=== PATIENT | female | born 1960 | race Caucasian/White ===

== ENCOUNTER 2021-09-25 13:50 | Outpatient (CLI) | payer BC, MEDICAID, SELFPAY ==
--- NOTE | 2021-09-25 14:04 | XR_ITS ---
WS: [id number] DEXA (DUAL ENERGY X-RAY ABSORPTIOMETRY) Bone mineral density was performed using a [employer] machine. HISTORY: POSTMENOPAUSAL COMPARISON: None available. Lumbar spine BMD (L1-L4): 1.022 g/cm2 T score: -1.3 Z score: -0.9 Total hip BMD: Left: 1.027 g/cm2. T score: 0.2 Z score: 0.5 Right: 1.019 g/cm2. T score: 0.1 Z score: 0.5 10 year probability of a major osteoporotic fracture is 9.5%. XR/XR DEXA axial skeleton* 23224 IMPRESSION: OSTEOPENIA based upon the WHO classification for females.
== END 2021-09-25 13:51 | disposition home or self-care (01) ==
LOC: RAD 13:53
PROVIDERS: Visit Provider Nurse Practitioner
DX: Z13.820 Encounter for screening for osteoporosis (principal); Z78.0 Asymptomatic menopausal state; M85.80 Other specified disorders of bone density and structure, unspecified site
CPT/HCPCS: 77080

== ENCOUNTER 2021-10-15 07:00 | Day surgery (SDC) | payer BC, MEDICAID, SELFPAY ==
[2021-10-12 11:33] VITALS: BMI 40.0
[2021-10-15 07:27] VITALS: BP 124/91; PULSE 88; RESP 18; TEMP 36.6; O2SAT 96
--- NOTE | 2021-10-15 07:40 | ANES.PREANE2 ---
Pre-Anesthetic Assessment Height/Weight: Height 1.52 m Weight 92.986 kg Temp Pulse Resp BP Pulse Ox 97.9 F 88 18 124/91 96 10/15/21 07:27 10/15/21 07:27 10/15/21 07:27 10/15/21 07:27 10/15/21 07:27 Preop Diagnosis: History of cancer Operation Date: 10/15/21 08:30 Proposed Procedures p Colonoscopy g0105/z85.038(Not Applicable) - Misael Rubalcava MD Familial anesthetic complications: Trouble waking up when she [age] years old, no trouble since. Has had once incident of PONV. Also, concerned because she had conscious sedation during one colonoscopy and didn't realize she'd be awake. Does not want that to happen again Was Beta Vinnie taken within 24 hours: N/A Was Clonidine taken within 24 hours: N/A Last intake: Intake Last Liquid Date 10/14/21 Last Liquid Time 20:00 Last Solid Date 10/13/21 Last Solid Time 20:00 Social No alcohol and No tobacco former smoker Exam alert, oriented x 3, clear to auscultation bilaterally and regular rate & rhythm Airway Mallampati: Class II Dentition: full Pulmonary Chronic Obstructive Pulmonary Disease CV/HEM None reported None reported Hepatic None reported GI None reported Metabolic Morbid Obesity Musc/skel None reported Neuropsych None reported Anesthetic Plan ASA status: 3 Risk of > 500 ml blood loss (7ml/kg in children): No Other Pertinent Information Colon cancer s/p resection Medications/Allergies Home Medications Medication Instructions Recorded Confirmed Last Taken Type albuterol sulfate 90 mcg/actuation 2 puff INHALATION Q6H PRN 09/17/21 10/12/21 Unknown History aerosol inhaler (Ventolin HFA) escitalopram oxalate 20 mg tablet 20 mg PO DAILY 09/17/21 10/12/21 10/14/21 History fluticasone propionate 50 1 spray INTRANASAL BID 09/17/21 10/12/21 10/14/21 History mcg/actuation nasal spray,suspension (Flonase Allergy Relief) umeclidinium 62.5 mcg-vilanterol 1 inh INHALATION DAILY 10/04/21 10/12/21 10/14/21 History 25 mcg/actuation powdr for inhalation (Anoro Ellipta) coenzyme Q10 100 mg tablet 100 mg PO DAILY 10/12/21 10/12/21 10/14/21 History calcium carbonate 600 mg calcium 600 mg PO BID 10/15/21 10/15/21 10/14/21 History (1,500 mg) tablet (Calcium) cholecalciferol (vitamin D3) 50 50 mcg PO DAILY 10/15/21 10/15/21 10/14/21 History mcg (2,000 unit) tablet (Vitamin D3) tirzbnnl-ivg-ofwsk ac 400 1 tab PO DAILY 10/15/21 10/15/21 10/14/21 History mcg-calcium carb 500 mg-vit K1 20 mcg tablet (Women's 50 Plus Multivitamin) Allergies Allergy/AdvReac Type Severity Reaction Status Date / Time cefaclor Allergy HIVES Verified 10/04/21 13:06 penicillin V [From Nhan-Dayana Padron] Allergy HIVES Verified 10/04/21 13:06 Data Anesthesia Cardiac Studies: No Data to Display
[2021-10-15] MEDS: sodium chloride 0.9% 1,000 ML 30 ML IV (07:41)
--- NOTE | 2021-10-15 09:08 | P.HP_ITS ---
Same Day Surgery H&P Indication for Procedure/HPI DATE OF PROCEDURE: October 15, 2021 CHIEF COMPLAINT/INDICATIONFOR SURGICAL PROCEDURE: Previous colorectal cancer PREOP DIAGNOSIS: History of cancer PLANNED PROCEDURE: Operation Date: 10/15/21 08:30 Proposed Procedures p Colonoscopy g0105/z85.038(Not Applicable) - Misael Rubalcava MD Medications/Allergies* Home Medications Medication Instructions Recorded Confirmed Type albuterol sulfate 90 mcg/actuation 2 puff INHALATION Q6H PRN 09/17/21 10/12/21 History aerosol inhaler (Ventolin HFA) escitalopram oxalate 20 mg tablet 20 mg PO DAILY 09/17/21 10/12/21 History fluticasone propionate 50 1 spray INTRANASAL BID 09/17/21 10/12/21 History mcg/actuation nasal spray,suspension (Flonase Allergy Relief) umeclidinium 62.5 mcg-vilanterol 1 inh INHALATION DAILY 10/04/21 10/12/21 History 25 mcg/actuation powdr for inhalation (Anoro Ellipta) coenzyme Q10 100 mg tablet 100 mg PO DAILY 10/12/21 10/12/21 History calcium carbonate 600 mg calcium 600 mg PO BID 10/15/21 10/15/21 History (1,500 mg) tablet (Calcium) cholecalciferol (vitamin D3) 50 50 mcg PO DAILY 10/15/21 10/15/21 History mcg (2,000 unit) tablet (Vitamin D3) hopiosbx-zep-rrtqr ac 400 1 tab PO DAILY 10/15/21 10/15/21 History mcg-calcium carb 500 mg-vit K1 20 mcg tablet (Women's 50 Plus Multivitamin) Allergies/Adverse Reactions Allergy/AdvReac Type Severity Reaction Status Date / Time cefaclor Allergy HIVES Verified 10/04/21 13:06 penicillin V [From Pen-Vee K] Allergy HIVES Verified 10/04/21 13:06 Current Medications: Generic Name Dose Route Start Last Admin Trade Name Freq PRN Reason Stop Dose Admin Sodium Chloride 1,000 mls @ 30 mls/hr 10/15/21 07:15 10/15/21 07:41 Sodium Chloride 0.9% IV 10/16/21 07:14 30 mls/hr .Q24H VALORIE Administration Pertinent Exam Findings alert, oriented x 3, clear to auscultation bilaterally, regular rate & rhythm, operative site marked and procedure specific exam findings Recommendations Surgery/Procedure today Coding Level of Care Code Acute 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
[2021-10-15 09:30] VITALS: BP 99/54; PULSE 76; RESP 20; TEMP 36.1; O2SAT 99
[2021-10-15 09:44] VITALS: BP 109/48; PULSE 72; RESP 18; O2SAT 100
[2021-10-15 09:55] VITALS: BP 115/68; PULSE 68; RESP 18; O2SAT 99
--- NOTE | 2021-10-15 13:23 | ANE.PACU2 ---
Inpatient post-anesthesia follow up: Airway intact: Yes Vital signs: Temperature 97 F Pulse Rate 68 Respiratory Rate 18 Blood Pressure 115/68 Pulse Oximetry 99 Oxygen Delivery Me thod Room Air Oxygen Flow Rate 3 Fraction of Inspir ed Oxygen Hydration adequate: Yes Nausea and vomiting: No Pain level: 1 Mental status: Baseline
== END 2021-10-15 10:15 | disposition home or self-care (01) ==
PROVIDERS: Visit Provider Internal Medicine
PROC: 0DJD8ZZ Inspection of Lower Intestinal Tract, Via Natural or Artificial Opening Endoscopic (ICD-10-PCS; CPT 45378; principal; 2021-10-15 08:30)
DX: Z85.038 Personal history of other malignant neoplasm of large intestine (principal); J44.9 Chronic obstructive pulmonary disease, unspecified; E66.01 Morbid (severe) obesity due to excess calories; Z68.41 Body mass index [BMI] 40.0-44.9, adult
CPT/HCPCS: 44388; J2704; J7030

== ENCOUNTER → 2021-11-15 13:48 | Outpatient (BNVA) | payer BC, MEDICAID, SELFPAY | PROVIDERS: PCP Nurse Practitioner; Referring Provider Nurse Practitioner; Visit Provider Specialist | DX: M25.511 Pain in right shoulder (principal); M25.512 Pain in left shoulder | CPT/HCPCS: 73030; 99204 ==

== ENCOUNTER 2021-12-20 12:35 | Outpatient (CLI) | payer BC, MEDICAID, SELFPAY ==
--- NOTE | 2021-12-20 13:45 | MR_ITS ---
WS: [id number] MRI RIGHT SHOULDER HISTORY: right shoulder pain COMPARISON: Radiograph 11/15/2021 TECHNIQUE: Multiplanar sequences of the shoulder joint are submitted. Mild narrowing of the AC joint. Large osteophyte from the distal clavicle encroaches inferiorly upon the myotendinous insertion of the supraspinatus. Osteophyte measures 6 x 10 mm with deformity and con tact on the supraspinatus muscle and tendon. Very small amount of fluid in the subdeltoid bursa. No o s acromion. Small caliber biceps tendon in the bicipital groove. Mild narrowing of the glenohumeral joint. No tear involving the rotator cuff muscles. Mild atrophy of the supraspinatus muscle. No labral tear. MR/MR shoulder RT wo con* [id number] IMPRESSION: 1. Distal clavicular osteophyte encroachment upon the myotendinous insertion s upraspinatus muscle. 2. No rotator cuff tear. 3. Mild atrophy supraspinatus muscle. 4. No labral tear.
== END 2021-12-20 12:36 | disposition home or self-care (01) ==
LOC: RAD 12:37
PROVIDERS: PCP Nurse Practitioner; Visit Provider Specialist
DX: M25.511 Pain in right shoulder (principal); M25.711 Osteophyte, right shoulder
CPT/HCPCS: 73221

== ENCOUNTER 2021-12-20 12:35 | Outpatient (CLI) | payer BC, MEDICAID, SELFPAY ==
--- NOTE | 2021-12-20 13:28 | MR_ITS ---
WS: [id number] MRI LUMBAR SPINE NONCONTRAST HISTORY: DDD, OSTEOPOROSIS, L-S RADICULOPATHY COMPARISON: None available. TECHNIQUE: Sagittal and axial multisequence imaging is submitted. Normal posterior lumbar alignment. Very small amount of reactive marrow edema in the endplates of T11 and T12. No acute fractures. Small Schmorl's node superior endplate of L3. Disc spaces and vertebral body heights are well-preserved. Conus terminates normally at L1. L1-L2: Normal. L2-L3: Mild disc bulging. No stenosis. L3-L4: Mild disc bulging. No stenosis. Mild ligamentum flavum hypertrophy. L4-L5: Mild annular disc bulge with moderate ligamentum flavum and facet arthritis. Small amount of f luid in the facet joints bilaterally. There is mild central and bilateral subarticular recess stenosi s. Mild LEFT foraminal stenosis. There is very slight disc contact on the traversing L5 nerve roots. L5-S1: Normal. Paravertebral soft tissues are normal. MR/MR lumbar spine wo con* [id number] IMPRESSION: 1. No high-grade central stenosis or disc protrusions. 2. Mild central and bilateral subarticular recess stenosis at L4-5 with minima l disc contact on the L5 nerve roots.
== END 2021-12-20 12:36 | disposition home or self-care (01) ==
LOC: RAD 12:37
PROVIDERS: PCP Nurse Practitioner; Visit Provider Anesthesiology
DX: M51.36 Other intervertebral disc degeneration, lumbar region (principal); M54.17 Radiculopathy, lumbosacral region; M81.0 Age-related osteoporosis without current pathological fracture
CPT/HCPCS: 72148